=== PATIENT | female | born 1970 | race Caucasian/White ===

== ENCOUNTER 2019-02-28 02:29 | Observation (INO) | payer MEDICARE, OTHER ==
[2019-02-28 03:13] LABS: ADD MAN DIFF? NO
[2019-02-28 03:14] LABS: BASOPHIL # 0.1 10^3/ul (0.0-0.1); BASOPHILS % 0.7 % (0.0-2.0); EOSINOPHILS # 0.2 10^3/ul (0.0-0.5); EOSINOPHILS % 2.8 % (0.0-7.0); HEMATOCRIT 36.2 % (37.0-47.0); HEMOGLOBIN 11.7 g/dl (12.0-16.0); LYMPHOCYTES # 2.3 10^3/ul (0.8-2.9); LYMPHOCYTES % 34.2 % (15.0-51.0); MEAN CORPUSCULAR HEMOGLOBIN 30.3 pg (29.0-33.0); MEAN CORPUSCULAR HGB CONC 32.3 g/dl (32.0-37.0); MEAN CORPUSCULAR VOLUME 93.8 fl (82.0-101.0); MEAN PLATELET VOLUME 9.8 fl (7.4-10.4); MONOCYTE # 0.6 10^3/ul (0.3-0.9); MONOCYTES % 8.2 % (0.0-11.0); NEUTROPHIL # 3.7 10^3/ul (1.6-7.5); NEUTROPHILS % 53.8 % (39.0-77.0); PLATELET COUNT 268 10^3/UL (140-415); RED BLOOD COUNT 3.86 10^6/ul (4.20-5.40); RED CELL DISTRIBUTION WIDTH 13.5 % (11.5-14.5)
[2019-02-28 03:14] LABS: WHITE BLOOD COUNT 6.8 10^3/ul (4.8-10.8)
[2019-02-28 03:34] LABS: ALANINE AMINOTRANSFERASE 31 IU/L (13-69); ALBUMIN 3.8 g/dl (3.3-4.9); ALBUMIN/GLOBULIN RATIO 1.15; ALKALINE PHOSPHATASE 67 IU/L (42-121); ANION GAP 7 (5-13); ASPARTATE AMINO TRANSFERASE 34 IU/L (15-46); BILIRUBIN,INDIRECT 0.2 mg/dl (0-1.1); BILIRUBIN,TOTAL 0.2 mg/dl (0.2-1.3); BLOOD UREA NITROGEN 14 mg/dl (7-20); CALCIUM 8.8 mg/dl (8.4-10.2); CARBON DIOXIDE 26 mmol/L (21-31); CHLORIDE 108 mmol/L (97-110); CREATININE 0.76 mg/dl (0.44-1.00); Estimated GFR > 60 mL/min (>60); GLUCOSE 103 mg/dl (70-220); LIPASE 53 U/L (23-300); SODIUM 141 mmol/L (135-144); TOTAL PROTEIN 7.1 g/dl (6.1-8.1)
[2019-02-28] MEDS: SOD CHLORIDE 0.9% 1,000 ML IV (03:34)
[2019-02-28 03:45] LABS: B-TYPE NATRIURETIC PEPTIDE 57 PG/ML (0-125); TROPONIN-I < 0.012 ng/ml (0.000-0.120)
[2019-02-28 04:10] LABS: ADD UMIC NO; UR ASCORBIC ACID NEGATIVE (NEGATIVE); UR BACTERIA FEW /HPF (NONE SEEN); UR BILIRUBIN (Dip) NEGATIVE (NEGATIVE); UR BLOOD (Dip) NEGATIVE (NEGATIVE); UR BUDDING YEAST MODERATE /HPF (NONE SEEN); UR CLARITY SLIGHTLY CLOUDY (CLEAR); UR COLOR YELLOW (YELLOW); UR GLUCOSE (Dip) NEGATIVE (NEGATIVE); UR KETONES (Dip) NEGATIVE (NEGATIVE); UR LEUKOCYTE ESTERASE (Dip) NEGATIVE Leu/ul (NEGATIVE); UR NITRITE (Dip) NEGATIVE (NEGATIVE); UR RBC 1 /HPF (0-5); UR SPECIFIC GRAVITY (Dip) 1.009 (1.003-1.030); UR SQUAMOUS EPITHELIAL CELL FEW /HPF (FEW); UR TOTAL PROTEIN (Dip) NEGATIVE (NEGATIVE); UR UROBILINOGEN (Dip) NEGATIVE (NEGATIVE); UR WBC 2 /HPF (0-5)
[2019-02-28] MEDS ORDERED: ONDANSETRON 4 MG INJ IV ×2 (05:30→06:30)
[2019-02-28] MEDS ORDERED: ACETAMINOPHEN 325 MG TAB PO ×2 (05:30→06:30)
[2019-02-28] MEDS: HEPARIN 5,000 UNIT/1 ML VIAL SC ×3 (06:27→21:54)
[2019-02-28] MEDS: PANTOPRAZOLE (EC) 40 MG TAB PO (06:29)
[2019-02-28] MEDS ORDERED: DOCUSATE SODIUM 100 MG CAP PO (06:30)
[2019-02-28] MEDS: ACET/BUTAL/CAFF TAB PO ×3 (06:30→23:48)
[2019-02-28] MEDS ORDERED: morphine 2 MG INJ IV (06:30)
[2019-02-28] MEDS ORDERED: BISACODYL (EC) 5 MG TAB PO (06:30)
[2019-02-28] MEDS ORDERED: NITROGLYCERIN (SL) 0.4 MG TAB SL (06:30)
[2019-02-28] MEDS ORDERED: NACL 0.9% 3 ML SYG IV (06:30)
[2019-02-28 10:46] LABS: CREATINE KINASE 49 IU/L (23-200)
[2019-02-28] MEDS: predniSONE 10 MG TAB PO (10:56)
[2019-02-28] MEDS: EUCERIN 113 GM CR TOP ×2 (10:57→20:42)
[2019-02-28 10:59] LABS: CK INDEX 0.4; CK-MB < 0.22 ng/ml (0.0-2.4); TROPONIN-I < 0.012 ng/ml (0.000-0.120)
[2019-02-28] MEDS ORDERED: NICOTINE POLACRILEX 4 MG GUM BUCCAL (12:30)
[2019-02-28] MEDS: NICOTINE (21 MG/24 HR) PATCH TRANSDERM (12:49)
[2019-02-28] MEDS ORDERED: NICOTINE POLACRILEX 2 MG GUM BUCCAL (13:00)
[2019-02-28] MEDS: LORAZEPAM 2 MG INJ IV (13:15)
[2019-02-28 16:18] LABS: CREATINE KINASE 43 IU/L (23-200)
[2019-02-28 16:31] LABS: CK INDEX 0.7; TROPONIN-I < 0.012 ng/ml (0.000-0.120)
[2019-03-01 05:31] LABS: ADD MAN DIFF? NO
[2019-03-01 05:33] LABS: WHITE BLOOD COUNT 5.1 10^3/ul (4.8-10.8)
[2019-03-01 05:33] LABS: BASOPHILS % 0.8 % (0.0-2.0); EOSINOPHILS # 0.3 10^3/ul (0.0-0.5); EOSINOPHILS % 5.1 % (0.0-7.0); HEMATOCRIT 35.2 % (37.0-47.0); HEMOGLOBIN 11.2 g/dl (12.0-16.0); LYMPHOCYTES # 2.2 10^3/ul (0.8-2.9); LYMPHOCYTES % 43.7 % (15.0-51.0); MEAN CORPUSCULAR HEMOGLOBIN 30.2 pg (29.0-33.0); MEAN CORPUSCULAR HGB CONC 31.8 g/dl (32.0-37.0); MEAN CORPUSCULAR VOLUME 94.9 fl (82.0-101.0); MEAN PLATELET VOLUME 10.3 fl (7.4-10.4); MONOCYTE # 0.5 10^3/ul (0.3-0.9); MONOCYTES % 9.3 % (0.0-11.0); NEUTROPHIL # 2.1 10^3/ul (1.6-7.5); NEUTROPHILS % 40.9 % (39.0-77.0); PLATELET COUNT 224 10^3/UL (140-415); RED BLOOD COUNT 3.71 10^6/ul (4.20-5.40); RED CELL DISTRIBUTION WIDTH 13.4 % (11.5-14.5)
[2019-03-01] MEDS: PANTOPRAZOLE (EC) 40 MG TAB PO (05:36)
[2019-03-01] MEDS: HEPARIN 5,000 UNIT/1 ML VIAL SC ×2 (05:43→14:35)
[2019-03-01 06:11] LABS: ALANINE AMINOTRANSFERASE 27 IU/L (13-69); ALBUMIN 3.2 g/dl (3.3-4.9); ALBUMIN/GLOBULIN RATIO 1.14; ALKALINE PHOSPHATASE 58 IU/L (42-121); ANION GAP 4 (5-13); ASPARTATE AMINO TRANSFERASE 27 IU/L (15-46); BILIRUBIN,INDIRECT 0.2 mg/dl (0-1.1); BILIRUBIN,TOTAL 0.2 mg/dl (0.2-1.3); BLOOD UREA NITROGEN 9 mg/dl (7-20); CALCIUM 8.4 mg/dl (8.4-10.2); CARBON DIOXIDE 24 mmol/L (21-31); CHLORIDE 113 mmol/L (97-110); CHOL/HDL RATIO 5.2 RATIO; CHOLESTEROL 204 mg/dl (100-200); CREATININE 0.62 mg/dl (0.44-1.00); Estimated GFR > 60 mL/min (>60); GLUCOSE 104 mg/dl (70-220); HDL CHOLESTEROL 39 mg/dl (37-92); LDL CHOLESTEROL,CALCULATED 137 mg/dl; MAGNESIUM 1.9 mg/dl (1.7-2.5); POTASSIUM 3.7 mmol/L (3.5-5.1); SODIUM 141 mmol/L (135-144); TRIGLYCERIDES 139 mg/dl (0-149)
[2019-03-01 06:38] LABS: THYROID STIMULATING HORMONE 0.684 MIU/L (0.465-4.680)
[2019-03-01] MEDS: EUCERIN 113 GM CR TOP (08:06)
[2019-03-01] MEDS: predniSONE 10 MG TAB PO (08:06)
[2019-03-01] MEDS: NICOTINE (21 MG/24 HR) PATCH TRANSDERM (08:07)
== END 2019-03-01 17:14 | disposition home health service (06) ==
LOC: 6WM 07:47 → E/R 02:29 → 6WM 05:27
DX: G43.709 Chronic migraine without aura, not intractable, without status migrainosus (principal); R07.9 Chest pain, unspecified; M32.9 Systemic lupus erythematosus, unspecified; M79.89 Other specified soft tissue disorders; L40.9 Psoriasis, unspecified; D64.9 Anemia, unspecified; F17.210 Nicotine dependence, cigarettes, uncomplicated; Z86.718 Personal history of other venous thrombosis and embolism; Z79.01 Long term (current) use of anticoagulants; K21.9 Gastro-esophageal reflux disease without esophagitis
CPT/HCPCS: 36415; 70450; 70553; 71045; 80053; 80061; 81001; 81003; 82550; 82553; 83036; 83690; 83735; 83880; 84443; 84484; 85025; 93005; 93306; 93970; 97162; 99285-25; G0378